=== PATIENT | male | born 1955 | race Caucasian/White ===

== ENCOUNTER 2020-05-15 08:41 | Emergency (ER) | payer OTHER ==
[2020-05-15 08:50] VITALS: BP 161/100; PULSE 116; TEMP 98.2; BMI 46.8
[2020-05-15 09:49] LABS: BASO % 0.4 % (0-2.0); HEMATOCRIT 47.9 % (35.4-49); HEMOGLOBIN 16.8 GM/dL (11.7-16.9); MCH 33.3 pg (25.7-33.7); MEAN CELL VOLUME 95.1 fl (80-96); MEAN PLT VOLUME 9.7 fl (7.5-11.1); MONO % 4.8 % (3.8-10.2); NEUT % 88.8 % (42.8-82.8); PLATELET COUNT 120 K/MM3 (134-434); RBC 5.04 M/mm3 (4.00-5.60); RDW 12.8 % (11.9-15.9); WHITE BLOOD COUNT 5.8 K/mm3 (4.0-10.0)
[2020-05-15 09:53] LABS: EPI CELLS 6 /uL (0-25.1); HYALINE CASTS 0 /uL (0-3.1); URINE APPEARANCE CLEAR; URINE BACTERIA 4 /uL (0-1359); URINE BILIRUBIN NEGATIVE (NEGATIVE); URINE COLOR DK YELLOW; URINE GLUCOSE (UA) 3+ (NEGATIVE); URINE KETONE 4+ (NEGATIVE); URINE LEUK ESTERASE NEGATIVE (NEGATIVE); URINE NITRITE NEGATIVE (NEGATIVE); URINE PROTEIN 1+ (NEGATIVE); URINE RBC 5 /uL (0-23.9); URINE WBC 2 /uL (0-25.8)
[2020-05-15 10:15] LABS: ALBUMIN 4.2 g/dl (3.4-5.0); BLOOD UREA NITROGEN 11.5 mg/dL (7-18); CALCIUM 9.9 mg/dL (8.5-10.1)
[2020-05-15 10:20] LABS: CREATININE 0.9 mg/dL (0.55-1.3); TOT PROT 8.3 g/dl (6.4-8.2)
[2020-05-15 10:21] LABS: BILIRUBIN,TOTAL 2.3 mg/dL (0.2-1)
[2020-05-15] MEDS ORDERED: SODIUM CHLORIDE 1,000 ML IV STA (10:40)
== END 2020-05-15 14:06 | disposition home or self-care (01) ==
LOC: JER 08:41
CPT/HCPCS: 36415; 74177-TC; 80053; 81003; 85025; 93971-TC; 99285-25; Q9967

== ENCOUNTER 2020-06-01 22:21 | Emergency (ER) | payer SELFPAY ==
[~2020-06-01 22:21] MED LIST: LIDOCAINE PATCH REMOVAL MC SCH
[2020-06-01 22:24] VITALS: BP 127/86; PULSE 90; TEMP 97.8; BMI 29.2
[2020-06-01] MEDS ORDERED: ACETAMINOPHEN 325 MG TABLET (FP) PO ONE (23:20)
[2020-06-01] MEDS ORDERED: METHOCARBAMOL 500 MG TABLET PO ONE (23:20)
[2020-06-01] MEDS ORDERED: KETOROLAC TROMETHAMINE 30 MG/1 ML VIAL IVPUSH ONE (23:20)
[2020-06-01] MEDS ORDERED: LIDOCAINE 5% TOPICAL PATCH TP ONE (23:20)
[2020-06-01] MEDS ORDERED: METHOCARBAMOL 500 MG TABLET ONE (23:24)
[2020-06-01] MEDS ORDERED: ACETAMINOPHEN 325 MG TABLET (FP) ONE (23:24)
[2020-06-01] MEDS ORDERED: LIDOCAINE 5% TOPICAL PATCH ONE (23:24)
[2020-06-01] MEDS ORDERED: KETOROLAC TROMETHAMINE 30 MG/1 ML VIAL ONE (23:25)
== END 2020-06-02 01:00 | disposition home or self-care (01) ==
LOC: JER 22:21
PROC: 3E0333Z Introduction of Anti-inflammatory into Peripheral Vein, Percutaneous Approach (ICD-10-PCS; principal; 2020-06-01)
DX: M54.5 Low back pain (principal)
CPT/HCPCS: 99284-25

== ENCOUNTER 2020-06-20 15:45 | Inpatient (IN) | payer OTHER ==
[2020-06-20] MEDS ORDERED: HYDROmorphone HCL 2 MG TABLET PO ONE (17:08)
[2020-06-20] MEDS ORDERED: HYDROmorphone HCL 2 MG TABLET ONE (17:15)
[2020-06-20] MEDS ORDERED: morphine CARPU-JECT 4 MG/1 ML DISP.SYRIN IVPUSH ONE (18:25)
[2020-06-20] MEDS ORDERED: morphine SULFATE 4 MG/ML VIAL ONE (19:26)
[2020-06-20 21:25] LABS: BASO % 0.8 % (0-2.0); EOS % 0.3 % (0-4.5); HEMATOCRIT 41.2 % (35.4-49); HEMOGLOBIN 14.3 GM/dL (11.7-16.9); LYMPH % 20.1 % (8-40); MCH 32.6 pg (25.7-33.7); MCHC 34.6 g/dl (32.0-35.9); MEAN CELL VOLUME 94.2 fl (80-96); MEAN PLT VOLUME 10.5 fl (7.5-11.1); MONO % 8.1 % (3.8-10.2); NEUT % 70.7 % (42.8-82.8); PLATELET COUNT 194 K/MM3 (134-434); RBC 4.37 M/mm3 (4.00-5.60); RDW 13.1 % (11.9-15.9); WHITE BLOOD COUNT 7.6 K/mm3 (4.0-10.0)
[2020-06-20 21:56] LABS: ALBUMIN 3.8 g/dl (3.4-5.0); BLOOD UREA NITROGEN 15.7 mg/dL (7-18); CALCIUM 9.4 mg/dL (8.5-10.1)
[2020-06-20 22:00] LABS: CREATININE 0.8 mg/dL (0.55-1.3)
[2020-06-20 22:01] LABS: TOT PROT 7.5 g/dl (6.4-8.2)
[2020-06-20] MEDS ORDERED: HYDROmorphone HCl 2 MG/ML VIAL IVPUSH ONE (22:55)
[2020-06-20] MEDS ORDERED: HYDROmorphone HCl 2 MG/ML VIAL ONE (23:02)
[2020-06-21 02:35] VITALS: BMI 30.2
[2020-06-21] MEDS ORDERED: ACETAMINOPHEN 325 MG TABLET (FP) PO PRN (03:25)
[2020-06-21 07:14] LABS: BASO % 0.4 % (0-2.0); EOS % 0.7 % (0-4.5); HEMATOCRIT 39.9 % (35.4-49); HEMOGLOBIN 13.9 GM/dL (11.7-16.9); LYMPH % 27.8 % (8-40); MCH 32.8 pg (25.7-33.7); MCHC 34.8 g/dl (32.0-35.9); MEAN CELL VOLUME 94.1 fl (80-96); MEAN PLT VOLUME 10.2 fl (7.5-11.1); MONO % 12.4 % (3.8-10.2); NEUT % 58.7 % (42.8-82.8); PLATELET COUNT 168 K/MM3 (134-434); RBC 4.24 M/mm3 (4.00-5.60); RDW 13.3 % (11.9-15.9); WHITE BLOOD COUNT 6.9 K/mm3 (4.0-10.0)
[2020-06-21 07:42] LABS: CALCIUM 9.1 mg/dL (8.5-10.1)
[2020-06-21 07:43] LABS: ALBUMIN 3.6 g/dl (3.4-5.0); BLOOD UREA NITROGEN 14.5 mg/dL (7-18)
[2020-06-21 07:46] LABS: CREATININE 0.7 mg/dL (0.55-1.3)
[2020-06-21 07:48] LABS: BILIRUBIN,TOTAL 1.2 mg/dL (0.2-1)
[2020-06-21 15:17] VITALS: BP 128/83; PULSE 106; TEMP 98.2
== END 2020-06-21 15:14 | disposition home or self-care (01) | DRG 543 ==
LOC: JER 15:45 → JERBED 18:24 → J7W 06-21 00:50
PROVIDERS: ADMIT Hospitalist; ATTEND Family Medicine
DX: C79.51 Secondary malignant neoplasm of bone (principal); C22.0 Liver cell carcinoma; E11.9 Type 2 diabetes mellitus without complications; I10 Essential (primary) hypertension; E78.5 Hyperlipidemia, unspecified; G89.3 Neoplasm related pain (acute) (chronic); M54.41 Lumbago with sciatica, right side; F10.20 Alcohol dependence, uncomplicated
CPT/HCPCS: 36415; 80053; 85025; 93005; 93010; 99285-25; C9803; U0003; U0005